=== PATIENT | female | born 1975 | race American Indian/Alaskan Native ===

== ENCOUNTER 2018-01-24 08:31 | Outpatient (CLI) | payer BC | END 2018-01-24 08:32 | disposition home or self-care (01) | LOC: LAB 08:31 | PROVIDERS: ATTEND Surgery | DX: N60.01 Solitary cyst of right breast (principal) | CPT/HCPCS: 88112 ==

== ENCOUNTER 2019-07-23 13:28 | Outpatient (CLI) | payer BC ==
--- NOTE | 2019-07-23 14:16 | Mammography Report ---
DIGITAL SCREENING MAMMOGRAM WITH CAD, 07/23/2019 INDICATION: Routine screening mammography. TECHNIQUE: Digital bilateral 2D mammography was obtained in the craniocaudal and mediolateral obliq ue projections. This examination was interpreted with the benefit of Computer-Aided Detection analysi s. COMPARISON: 07/17/2018 FINDINGS: No mammographic evidence of malignancy. Breast Density: The breasts are heterogeneously dense, which may obscure small masses. There is no evidence of dominant mass, suspicious calcifications or architectural distortion in eithe r breast. IMPRESSION: No mammographic evidence of malignancy. Follow up recommendation: Routine yearly A "normal" or negative report should not discourage follow up or biopsy of a clinically significant f inding. A written summary of these findings will be mailed to the patient. The patient will be entered into a mammography reporting system which will generate a reminder letter for the patient's next appointmen t at the appropriate interval. The [employer] recommends yearly mammograms starting at age 40 and continuing as l gerda as a woman is in good health. Breast MRI is recommended for women with an approximate 20-25% or greater lifetime risk of breast cancer, including women with a strong family history of breast or ova merline cancer or who have been treated for Hodgkin's disease. Signer Name: Daniel Sanchez MD Signed: 07/23/2019 2:11 PM Workstation Name: [id number]
== END 2019-07-23 13:29 | disposition home or self-care (01) ==
LOC: SPVWC 13:28
PROVIDERS: ATTEND Surgery
DX: Z12.31 Encounter for screening mammogram for malignant neoplasm of breast (principal)
CPT/HCPCS: 77067

== ENCOUNTER 2020-07-28 07:58 | Outpatient (CLI) | payer BC ==
--- NOTE | 2020-07-29 08:16 | Mammography Report ---
BILATERAL DIGITAL SCREENING MAMMOGRAM WITH CAD HISTORY: SCREENING MAMMOGRAM TECHNIQUE: Routine digital mammographic imaging performed. This examination was interpreted with nick fortune benefit of Computer-aided Detection analysis. COMPARISON: 11/12/2019, 07/23/2019, 07/17/2018. FINDINGS: Breast Density: scattered fibroglandular appearance of the breast tissue. Digital CC and MLO views demonstrate no mammographic evidence of malignancy. IMPRESSION: No mammographic evidence of malignancy. If the clinical examination remains stable, recommend bilate ral mammogram in approximately one year. BIRADS 1: Negative. FURTHER INFORMATION: According to the [employer], yearly mammograms are recommend ed starting at age 40 and continuing as long as a woman is in good health. Clinical Breast Exams shou ld be part of a periodic health exam-about every 3 years for women in their 20s and 30s and every yea r for women 40 and over. Breast self exam is an option for women starting in their 20s. Any breast ch cornelio noted on a breast self exam should be reported promptly to the patient's healthcare provider. Br east MRI is recommended for women with an approximately 20-25% or greater lifetime risk of breast can cer, including women with a strong family history of breast or ovarian cancer and women who have been treated for Hodgkin's disease. A negative Mammography report should not discourage follow up or biopsy of a clinically significant f inding and/or abnormality. Dense breast tissue may obscure small neoplasms. The patient will be entered into a reminder system with a target due date for the next screening mamm ogram. Signer Name: Josep Zamora MD Signed: 07/29/2020 8:12 AM Workstation Name: [id number]
== END 2020-07-28 07:59 | disposition home or self-care (01) ==
LOC: SPVWC 07:58
PROVIDERS: ATTEND Surgery
DX: Z12.31 Encounter for screening mammogram for malignant neoplasm of breast (principal)
CPT/HCPCS: 77067

== ENCOUNTER 2021-02-03 13:26 | Outpatient (CLI) | payer BC ==
--- NOTE | 2021-02-03 15:06 | Ultrasound Report ---
RIGHT DIGITAL DIAGNOSTIC MAMMOGRAM WITH CAD , 02/03/2021 RIGHT COMPLETE BREAST ULTRASOUND CLINICAL INFORMATION / INDICATION: Patient states right nipple is undergoing skin changes. FIBROSCLER OSIS OF BILATERAL BREASTS/MASTODYNIA TECHNIQUE: Digital right mammographic imaging was performed. Complete ultrasound of all four (4) quad rants was performed. This examination was interpreted with the benefit of Computer-Aided Detection (C AD) analysis. COMPARISON: Prior mammogram 07/28/2020 and 07/23/2019 FINDINGS: Breast Density: The breasts are heterogeneously dense, which may obscure small masses. MAMMOGRAPHIC FINDINGS: No dominant mass, suspicious calcifications, or architectural distortion in th e right breast. No interval change from prior mammograms. ULTRASOUND FINDINGS: Complete sonographic evaluation of all 4 quadrants and retroareolar region was p erformed. There are a few small scattered cysts/fibrocystic areas of tissue in the right breast but I see no evidence of suspicious solid mass or abnormal shadowing. No axillary adenopathy noted. IMPRESSION: No mammographic or sonographic evidence of malignancy in the right breast. Please correla te clinically with respect to patient's complaint of right nipple changes. Follow up recommendation: Routine yearly BI-RADS Category 2: Benign. A "normal" or negative report should not discourage follow up or biopsy of a clinically significant f inding. A written summary of these findings will be mailed to the patient. The patient will be entered into a mammography reporting system which will generate a reminder letter for the patient's next appointmen t at the appropriate interval. According to the [employer], yearly mammograms are recommended starting at age 40 and continuing as long as a woman is in good health. Breast MRI is recommended for women with an brisa roximately 20-25% or greater lifetime risk of breast cancer, including women with a strong family his tory of breast or ovarian cancer and women who have been treated for Hodgkin's disease. Signer Name: Jossy No MD Signed: 02/03/2021 3:02 PM Workstation Name: [id number]
== END 2021-02-03 13:27 | disposition home or self-care (01) ==
LOC: SPVWC 13:26
PROVIDERS: ATTEND Surgery
DX: N60.31 Fibrosclerosis of right breast (principal); N60.32 Fibrosclerosis of left breast; N64.4 Mastodynia